=== PATIENT | female | born 1945 | race Caucasian/White ===

== ENCOUNTER 2021-04-23 10:49 | Emergency (ER) | payer OTHER ==
[~2021-04-23 10:49] MED LIST: AMITRIPTYLINE 225 MG PO; BENTYL10 MG PO; CYMBALTA60 MG PO; FLONASE ALLER15.8 ML; LISINOPRIL40 MG PO; MELOXICAM15 MG PO; SINGULAIR10 MG PO; SYNTHROID125 MCG PO
[2021-04-23 13:04] LABS: BASOPHIL 0.3 % (0-2); EOSINOPHIL 0.3 % (0-7); HCT 40.3 % (37.0-47.0); HGB 13.3 g/dl (12.5-16.0); LYMPHOCYTE 28.2 % (15-48); MCH 30.8 pg (25.0-31.0); MCV 93.3 fL (78.0-100.0); MONOCYTE 6.7 % (0-12); MPV 11.8 fL (6.0-9.5); NEUTROPHIL 63.8 % (41-80); NRBC 0; PLT 207 K/uL (150-400); RBC 4.32 M/uL (4.20-5.40); RDW 13.2 % (11.5-14.0); WBC 6.9 K/uL (4.0-10.5)
[2021-04-23 13:19] LABS: ALBUMIN 3.6 g/dL (3.4-5.0); BILIRUBIN - TOTAL 0.5 mg/dL (0.2-1.0); BUN/CREAT RATIO (CALC) 17.5 RATIO; CREATININE 1.03 mg/dL (0.51-0.95); GLOBULIN (CALCULATION) 4.1 g/dL; POTASSIUM 3.8 mmol/L (3.5-5.1); TOTAL PROTEIN 7.7 g/dL (6.4-8.2)
[2021-04-23 13:50] LABS: INFLUENZA A NAA NEGATIVE (NEGATIVE)
[2021-04-23 13:51] LABS: CORONAVIRUS 2019 SARS-COV-2 POSITIVE (NEGATIVE)
[2021-04-23 14:15] LABS: BILIRUBIN 2+ mg/dL (NEGATIVE); BLOOD 2+ Ery/uL (NEGATIVE); CLARITY CLOUDY (CLEAR); COLOR YELLOW (YELLOW); GLUCOSE (U) NORMAL (NORMAL); LEUKOCYTES 2+ Leu/uL (NEGATIVE); NITRITE NEGATIVE (NEGATIVE); PROTEIN NEGATIVE (NEGATIVE); SPECIFIC GRAVITY 1.025 (1.001-1.030); UROBILINOGEN 0.2 mg/dL (0.2-1.0)
[2021-04-23 14:25] LABS: BACTERIA 3+; MUCOUS MODERATE
[2021-04-23] MEDS ORDERED: CEFDINIR300 MG PO (15:04)
[2021-04-23] MEDS ORDERED: ZOFRAN4 M1 PO (15:38)
== END 2021-04-23 15:59 | disposition home or self-care (01) ==
LOC: FER 10:49
PROVIDERS: Emergency Medicine
DX: U07.1 COVID-19 (principal); N39.0 Urinary tract infection, site not specified; I10 Essential (primary) hypertension; J45.909 Unspecified asthma, uncomplicated
CPT/HCPCS: 36415; 80053; 81001; 85025; 87076; 87088; 87186; J2405; J7030; U0002

== ENCOUNTER 2021-04-27 11:28 | Day surgery (SDCO) | payer OTHER ==
[~2021-04-27] VITALS: Ht 167.6 cm; Wt 82.7 kg
[~2021-04-27 11:28] MED LIST changes: +CEFDINIR300 MG PO; +ZOFRAN4 M1 PO
[2021-04-27 12:11] LABS: BASOPHIL 0.2 % (0-2); BILIRUBIN 2+ mg/dL (NEGATIVE); BLOOD NEGATIVE Ery/uL (NEGATIVE); CLARITY CLEAR (CLEAR); COLOR YELLOW (YELLOW); EOSINOPHIL 0.3 % (0-7); GLUCOSE (U) NORMAL (NORMAL); HCT 36.9 % (37.0-47.0); LEUKOCYTES NEGATIVE Leu/uL (NEGATIVE); LYMPHOCYTE 21.3 % (15-48); MCH 30.3 pg (25.0-31.0); MCHC 32.5 g/dL (32.0-36.0); MCV 93.2 fL (78.0-100.0); MONOCYTE 8.3 % (0-12); MPV 10.7 fL (6.0-9.5); NEUTROPHIL 68.9 % (41-80); NITRITE NEGATIVE (NEGATIVE); NRBC 0; PLT 350 K/uL (150-400); PROTEIN TRACE (LOW) mg/dL (NEGATIVE); RBC 3.96 M/uL (4.20-5.40); RDW 12.9 % (11.5-14.0); SPECIFIC GRAVITY 1.025 (1.001-1.030); UROBILINOGEN 0.2 mg/dL (0.2-1.0); WBC 9.8 K/uL (4.0-10.5); pH 6.5 (5.0-9.0)
[2021-04-27 12:21] LABS: BACTERIA TRACE
[2021-04-27 12:39] LABS: BILIRUBIN - TOTAL 0.9 mg/dL (0.2-1.0); BUN/CREAT RATIO (CALC) 20.9 RATIO; C-REACTIVE PROTEIN 12.1 mg/dL (<=0.90); CREATININE 0.91 mg/dL (0.51-0.95); GLOBULIN (CALCULATION) 3.9 g/dL; MAGNESIUM 1.1 mg/dL (1.8-2.4); POTASSIUM 3.8 mmol/L (3.5-5.1); TOTAL PROTEIN 6.9 g/dL (6.4-8.2)
[2021-04-27 12:48] LABS: LACTIC ACID 1.6 mmol/L (0.4-1.9)
[2021-04-27] MEDS ORDERED: SYNTHROID125 MCG PO (16:22)
[2021-04-27] MEDS ORDERED: ZEGERID 40 MG1 EACH PO (16:22)
[2021-04-27] MEDS ORDERED: ZYRTEC10 MG PO (16:23)
[2021-04-27] MEDS ORDERED: 8 HOUR650 MG PO (16:24)
[2021-04-27] MEDS ORDERED: TOPROL XL 50 MG50 MG PO (16:25)
[2021-04-27 17:06] LABS: IRON % SATURATION 7.9 %SAT (20-50)
[2021-04-28 07:02] LABS: BASOPHIL 0.3 % (0-2); EOSINOPHIL 0 % (0-7); HCT 32.4 % (37.0-47.0); HGB 10.7 g/dl (12.5-16.0); MCH 30.5 pg (25.0-31.0); MCV 92.3 fL (78.0-100.0); MONOCYTE 8.8 % (0-12); MPV 11.3 fL (6.0-9.5); NEUTROPHIL 73.7 % (41-80); NRBC 0; PLT 347 K/uL (150-400); RBC 3.51 M/uL (4.20-5.40); RDW 13.1 % (11.5-14.0); WBC 6.2 K/uL (4.0-10.5)
[2021-04-28 07:06] LABS: LYMPHOCYTE 15.1 % (15-48)
[2021-04-28 07:22] LABS: BUN/CREAT RATIO (CALC) 20.5 RATIO; CREATININE 0.88 mg/dL (0.51-0.95); POTASSIUM 3.9 mmol/L (3.5-5.1)
[2021-04-28] MEDS ORDERED: REMEDY PHYTOPLE85 GM TOP (12:21)
[2021-04-28] MEDS ORDERED: CLOTRIMAZOLE45 G1 TOP (12:21)
[2021-04-28] MEDS ORDERED: FOLIC ACID1 MG PO (12:21)
--- NOTE | 2021-04-28 12:28 | NUR ---
04/28/21 Ms. Franco lives at home with her spouse. She was I in the home and community prior to admission. She is discharging today. No needs are anticipated.
== END 2021-04-28 13:11 | disposition home or self-care (01) ==
LOC: FER 11:28 → FMS 13:21
PROVIDERS: Emergency Medicine; ADMIT Family Medicine
DX: U07.1 COVID-19 (principal); J12.82 Pneumonia due to coronavirus disease 2019; J96.01 Acute respiratory failure with hypoxia; J44.9 Chronic obstructive pulmonary disease, unspecified; E03.9 Hypothyroidism, unspecified; Z91.048 Other nonmedicinal substance allergy status; Z79.82 Long term (current) use of aspirin; Z79.84 Long term (current) use of oral hypoglycemic drugs; I12.9 Hypertensive chronic kidney disease with stage 1 through stage 4 chronic kidney disease, or unspecified chronic kidney disease; N18.2 Chronic kidney disease, stage 2 (mild); E83.42 Hypomagnesemia; D64.9 Anemia, unspecified; N76.0 Acute vaginitis; R00.0 Tachycardia, unspecified
CPT/HCPCS: 36415; 36600; 71250; 80048; 80053; 81001; 82607; 82728; 82803; 83540; 83550; 83605; 83615; 83735; 83880; 84484; 85025; 85379; 86140; 87040; 93005; 94010; 94640; 94762; C9399; G0378; J0696; J1100; J1650; J2405; J3475; J7030; J7050; J8540

== ENCOUNTER 2021-05-11 16:07 | Inpatient (IN) | payer OTHER ==
[~2021-05-11] VITALS: Ht 167.6 cm; Wt 88.1 kg
[~2021-05-11 16:07] MED LIST changes: +8 HOUR650 MG PO; +CLOTRIMAZOLE45 G1 TOP; +FOLIC ACID1 MG PO; +REMEDY PHYTOPLE85 GM TOP; +TOPROL XL 50 MG50 MG PO; +ZEGERID 40 MG1 EACH PO; +ZYRTEC10 MG PO
[2021-05-11 16:27] LABS: BASOPHIL 0.6 % (0-2); EOSINOPHIL 0.3 % (0-7); HCT 34.8 % (37.0-47.0); HGB 11.1 g/dl (12.5-16.0); LYMPHOCYTE 38.3 % (15-48); MCH 30.9 pg (25.0-31.0); MCHC 31.9 g/dL (32.0-36.0); MONOCYTE 8.3 % (0-12); NEUTROPHIL 51.3 % (41-80); NRBC 0; PLT 426 K/uL (150-400); RBC 3.59 M/uL (4.20-5.40); RDW 14.6 % (11.5-14.0); WBC 15.6 K/uL (4.0-10.5)
[2021-05-11 16:34] LABS: MCV 96.9 fL (78.0-100.0)
[2021-05-11 16:41] LABS: INR 1.34 (0.9-1.2); PROTHROMBIN TIME 15.9 SECONDS (11.8-13.4); PTT 25.4 SECONDS (24.4-34.7)
[2021-05-11 17:03] LABS: ALBUMIN 3.4 g/dL (3.4-5.0); BILIRUBIN - TOTAL 0.7 mg/dL (0.2-1.0); BUN/CREAT RATIO (CALC) 55.2 RATIO; CREATININE 1.05 mg/dL (0.51-0.95); GLOBULIN (CALCULATION) 3.6 g/dL; MAGNESIUM 1.6 mg/dL (1.8-2.4); POTASSIUM 5.4 mmol/L (3.5-5.1)
[2021-05-11 17:05] LABS: LACTIC ACID 4.6 mmol/L (0.4-1.9)
[2021-05-11 18:44] LABS: BILIRUBIN NEGATIVE (NEGATIVE); BLOOD 1+ Ery/uL (NEGATIVE); CLARITY CLEAR (CLEAR); COLOR YELLOW (YELLOW); GLUCOSE (U) NORMAL (NORMAL); LEUKOCYTES 1+ Leu/uL (NEGATIVE); NITRITE NEGATIVE (NEGATIVE); PROTEIN TRACE (LOW) mg/dL (NEGATIVE); UROBILINOGEN 0.2 mg/dL (0.2-1.0)
[2021-05-11 19:05] LABS: AMORPHOUS URATES CRYSTALS TRACE; BACTERIA 2+; MUCOUS TRACE
[2021-05-11 19:31] LABS: BASOPHIL 0.4 % (0-2); EOSINOPHIL 0 % (0-7); HCT 28.5 % (37.0-47.0); HGB 9.1 g/dl (12.5-16.0); LYMPHOCYTE 10.7 % (15-48); MCH 31.2 pg (25.0-31.0); MCHC 31.9 g/dL (32.0-36.0); MCV 97.6 fL (78.0-100.0); MONOCYTE 5.5 % (0-12); MPV 10.9 fL (6.0-9.5); NEUTROPHIL 81.7 % (41-80); NRBC 0; PLT 349 K/uL (150-400); RBC 2.92 M/uL (4.20-5.40); RDW 14.4 % (11.5-14.0); WBC 24.4 K/uL (4.0-10.5)
[2021-05-11 21:58] LABS: HCT 26.3 % (37.0-47.0); HGB 8.6 g/dL (12.5-16.0)
[2021-05-12 03:48] LABS: HCT 25.3 % (37.0-47.0); HGB 8.2 g/dL (12.5-16.0)
[2021-05-12 08:51] LABS: BASOPHIL 0.3 % (0-2); EOSINOPHIL 0.2 % (0-7); HCT 25.7 % (37.0-47.0); HGB 8.1 g/dl (12.5-16.0); LYMPHOCYTE 29.9 % (15-48); MCH 30.8 pg (25.0-31.0); MCHC 31.5 g/dL (32.0-36.0); MCV 97.7 fL (78.0-100.0); MONOCYTE 8.7 % (0-12); MPV 11.2 fL (6.0-9.5); NEUTROPHIL 59.9 % (41-80); NRBC 0; PLT 300 K/uL (150-400); RBC 2.63 M/uL (4.20-5.40); RDW 14.8 % (11.5-14.0)
[2021-05-12 09:17] LABS: BUN/CREAT RATIO (CALC) 60.2 RATIO; CREATININE 1.08 mg/dL (0.51-0.95); POTASSIUM 4.8 mmol/L (3.5-5.1)
[2021-05-12 13:47] LABS: HCT 23.2 % (37.0-47.0); HGB 7.4 g/dl (12.5-16.0); MCHC 31.9 g/dL (32.0-36.0); MCV 97.1 fL (78.0-100.0); MPV 11.2 fL (6.0-9.5); RBC 2.39 M/uL (4.20-5.40); RDW 14.9 % (11.5-14.0); WBC 14.8 K/uL (4.0-10.5)
[2021-05-13 04:42] LABS: BASOPHIL 0.4 % (0-2); EOSINOPHIL 1.4 % (0-7); HCT 23.9 % (37.0-47.0); HGB 7.7 g/dl (12.5-16.0); LYMPHOCYTE 30.8 % (15-48); MCHC 32.2 g/dL (32.0-36.0); MONOCYTE 7.7 % (0-12); MPV 10.6 fL (6.0-9.5); NEUTROPHIL 58.6 % (41-80); NRBC 0.1; PLT 207 K/uL (150-400); RBC 2.57 M/uL (4.20-5.40); RDW 17.2 % (11.5-14.0); WBC 14.9 K/uL (4.0-10.5)
[2021-05-13 05:03] LABS: CREATININE 0.86 mg/dL (0.51-0.95); POTASSIUM 3.9 mmol/L (3.5-5.1)
[2021-05-14 08:14] LABS: BASOPHIL 0.5 % (0-2); EOSINOPHIL 2.4 % (0-7); HCT 24.6 % (37.0-47.0); HGB 8.1 g/dl (12.5-16.0); LYMPHOCYTE 31.5 % (15-48); MCHC 32.9 g/dL (32.0-36.0); MONOCYTE 9.8 % (0-12); MPV 10.6 fL (6.0-9.5); NEUTROPHIL 55.3 % (41-80); NRBC 0.3; PLT 167 K/uL (150-400); RBC 2.79 M/uL (4.20-5.40); RDW 18.4 % (11.5-14.0); WBC 7.8 K/uL (4.0-10.5)
[2021-05-14 08:16] LABS: MCV 88.2 fL (78.0-100.0)
[2021-05-14 08:26] LABS: CREATININE 0.7 mg/dL (0.51-0.95); POTASSIUM 3.2 mmol/L (3.5-5.1)
[2021-05-14] MEDS ORDERED: PROTONIX 40MG T40 MG PO (12:12)
[2021-05-14] MEDS ORDERED: ATARAX25 MG PO (14:25)
== END 2021-05-14 14:56 | disposition home or self-care (01) | DRG 377 ==
LOC: FER 16:07 → FTCU 05-12 09:54
PROVIDERS: Allergy & Immunology Allergy; Emergency Medicine; Emergency Medicine Emergency Medical Services; Nurse Practitioner; Nurse Practitioner Acute Care; Student in an Organized Health Care Education/Training Program; ADMIT Internal Medicine
PROC: 06HM33Z Insertion of Infusion Device into Right Femoral Vein, Percutaneous Approach (ICD-10-PCS; 2021-05-11)
PROC: 8E0ZXY6 Isolation (ICD-10-PCS; 2021-05-12)
PROC: 30233N1 Transfusion of Nonautologous Red Blood Cells into Peripheral Vein, Percutaneous Approach (ICD-10-PCS; 2021-05-12)
PROC: 0DC68ZZ Extirpation of Matter from Stomach, Via Natural or Artificial Opening Endoscopic (ICD-10-PCS; principal; 2021-05-12 13:00)
DX: K92.2 Gastrointestinal hemorrhage, unspecified (principal); U07.1 COVID-19; J12.82 Pneumonia due to coronavirus disease 2019; D62 Acute posthemorrhagic anemia; E87.2 Acidosis; J44.1 Chronic obstructive pulmonary disease with (acute) exacerbation; K44.9 Diaphragmatic hernia without obstruction or gangrene; T18.2XXA Foreign body in stomach, initial encounter; I95.9 Hypotension, unspecified; I12.9 Hypertensive chronic kidney disease with stage 1 through stage 4 chronic kidney disease, or unspecified chronic kidney disease; N18.2 Chronic kidney disease, stage 2 (mild); K21.9 Gastro-esophageal reflux disease without esophagitis; E03.9 Hypothyroidism, unspecified; Z87.440 Personal history of urinary (tract) infections; Z87.442 Personal history of urinary calculi; Z79.899 Other long term (current) drug therapy
CPT/HCPCS: 36415; 36430; 71045; 80048; 80053; 81001; 82270; 83605; 83735; 83880; 84145; 84484; 85014; 85018; 85025; 85610; 85730; 86850; 86900; 86901; 86922; 87040; 87088; 93005; 94010; 96374; 96375; 96376; C9113; J1170; J2250; J2354; J2405; J2543; J2704; J2916; J3370; J7030; J7040; J7050; J7120; P9016; U0002

== ENCOUNTER 2021-06-03 16:08 | Emergency (ER) | payer OTHER ==
[~2021-06-03 16:08] MED LIST changes: +ATARAX25 MG PO; +PROTONIX 40MG T40 MG PO
[2021-06-03 19:26] LABS: BASOPHIL 0.7 % (0-2); EOSINOPHIL 1.8 % (0-7); HCT 37.9 % (37.0-47.0); HGB 12.7 g/dl (12.5-16.0); LYMPHOCYTE 37.4 % (15-48); MCH 30.2 pg (25.0-31.0); MCHC 33.5 g/dL (32.0-36.0); MCV 90.2 fL (78.0-100.0); MONOCYTE 8.3 % (0-12); MPV 10.6 fL (6.0-9.5); NEUTROPHIL 51.2 % (41-80); NRBC 0; PLT 333 K/uL (150-400); RDW 18.8 % (11.5-14.0); WBC 10.6 K/uL (4.0-10.5)
[2021-06-03 19:46] LABS: ALBUMIN 3.8 g/dL (3.4-5.0); BILIRUBIN - TOTAL 0.7 mg/dL (0.2-1.0); BUN/CREAT RATIO (CALC) 27.5 RATIO; CREATININE 0.91 mg/dL (0.51-0.95); GLOBULIN (CALCULATION) 3.4 g/dL; TOTAL PROTEIN 7.2 g/dL (6.4-8.2)
== END 2021-06-03 22:45 | disposition home or self-care (01) ==
LOC: FER 16:08
PROVIDERS: Emergency Medicine
DX: J44.0 Chronic obstructive pulmonary disease with (acute) lower respiratory infection (principal); J12.9 Viral pneumonia, unspecified; K44.9 Diaphragmatic hernia without obstruction or gangrene; I12.9 Hypertensive chronic kidney disease with stage 1 through stage 4 chronic kidney disease, or unspecified chronic kidney disease; N18.30 Chronic kidney disease, stage 3 unspecified; R00.0 Tachycardia, unspecified; Z91.040 Latex allergy status; Z79.899 Other long term (current) drug therapy
CPT/HCPCS: 36415; 36600; 71045; 71275; 80053; 82803; 83880; 84145; 84484; 85025; 85379; 93005; 94640; 94664; Q9967